=== PATIENT | female | born 2005 | race Caucasian/White ===

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

== ENCOUNTER 2024-06-20 14:17 | Emergency (ER) | payer OTHER ==
[~2024-06-20] VITALS: Ht 167.6 cm; Wt 56.6 kg
[~2024-06-20 14:17] MED LIST changes: +ACYCLOVIR200 MG PO; +HYDROCODON-ACE1 EA10 PO; +HYDROCODON-ACE1 EAC8 PO; +ONDANSETRON ODT8 MG PO
[2024-06-20 15:27] LABS: BASOPHILS 0.3 % (0-2); EOSINOPHILS 2.6 % (0-6); HEMATOCRIT 41.5 % (35.0-50.0); MCH 32.6 (27-36); MCHC 33.7 g/dl (30-36); MCV 96.7 fl (81-99); MONOCYTES 9.3 % (0-12); NEUTROPHILS 55.8 % (39-80); PLATELET COUNT 281 K/uL (140-440); RDW 12.7 (10.5-15.0)
[2024-06-20 15:28] LABS: BILIRUBIN, URINE NEGATIVE (negative); BLOOD/HGB, URINE NEGATIVE (Negative); KETONE, URINE NEGATIVE (Negative); LEUK ESTERASE, URINE NEGATIVE (negative); NITRITE, URINE NEGATIVE (negative)
[2024-06-20] MEDS ORDERED: SODIUM CHLORIDE 0.9% 1,000 ML IV ONE (15:30)
[2024-06-20] MEDS ORDERED: ondansetron HCL 4 MG/2 ML VIAL IV ONE (15:30)
[2024-06-20] MEDS ORDERED: HYDROmorphone HCL 1 MG/ML SYR IV PRN (15:30)
[2024-06-20 15:48] LABS: ALBUMIN 4.2 g/dL (3.4-5.0); ALBUMIN/GLOBULIN RATIO 1.14 (1.1-2.4); ANION GAP 14.5 (7-21); BILIRUBIN, TOTAL 0.5 ng/dL (0.2-1.0); BUN/CREATININE RATIO 14.92 (6.0-28.6); CALCIUM 9.3 mg/dL (8.5-10.1); CREATININE, SERUM 0.67 mg/dL (0.55-1.02); POTASSIUM 3.5 mmol/L (3.5-5.1); PROTEIN, TOTAL 7.9 g/dL (6.4-8.2)
[2024-06-20] MEDS ORDERED: HYDROCODONE/ACETA 5/325 TAB PO ONE (17:15)
[2024-06-20] MEDS ORDERED: HYDROCODON-ACE1 EA11 PO (17:42)
[2024-06-20 18:28] VITALS: BP 101/65
[2024-06-25] MEDS ORDERED: IBU800 MG PO (02:42)
== END 2024-06-20 18:28 | disposition home or self-care (01) ==
LOC: ED 14:17
PROVIDERS: Emergency Medicine
DX: R10.2 Pelvic and perineal pain (principal); N83.202 Unspecified ovarian cyst, left side
CPT/HCPCS: 36415; 74177; 80053; 81003; 83690; 84703; 85025; 96361; 96375; 99284-25; J1170; J2405; J7030; Q9967

== ENCOUNTER 2025-03-13 20:33 | Emergency (ER) | payer OTHER ==
[~2025-03-13 20:33] MED LIST changes: +HYDROCODON-ACE1 EA11 PO; +IBU800 MG PO
[2025-03-13] MEDS ORDERED: FAMOTIDINE 20 MG/ 2 ML VIAL IV ONE (21:00)
[2025-03-13] MEDS ORDERED: ondansetron HCL 4 MG/2 ML VIAL IV ONE (21:00)
[2025-03-13] MEDS ORDERED: LACTATED RINGER'S 1,000 ML IV ONE (21:00)
[2025-03-13 21:08] LABS: BASOPHILS 1.1 % (0.1-1.2); EOSINOPHILS 2.6 % (0.7-5.8); HEMATOCRIT 40.6 % (34.1-44.9); HEMOGLOBIN 14.1 g/dL (11.2-15.7); LYMPHOCYTES 39.7 % (19.3-51.7); MCH 32.3 PG (25.6-32.2); MCHC 34.7 g/dL (32.2-35.5); MCV 92.9 fL (79.4-94.8); MONOCYTES 8.5 % (4.7-12.5); NEUTROPHILS 48.1 % (34.0-71.1); PLATELET COUNT 321 K/uL (182-369); RBC 4.37 M/uL (3.93-5.22)
[2025-03-13 21:24] LABS: ABO O; RH POSITIVE
[2025-03-13 21:30] LABS: ALBUMIN 4.5 g/dL (3.4-5.0); ALBUMIN/GLOBULIN RATIO 1.15 (1.1-2.4); ALKALINE PHOSPHATASE 79 U/L (46-116); ALT (SGPT) 22 U/L (14-59); ANION GAP 16.3 (7-21); AST (SGOT) 13 U/L (15-37); BILIRUBIN, TOTAL 0.6 mg/dL (0.2-1.0); CALCIUM 9.2 mg/dL (8.5-10.1); CARBON DIOXIDE 24 mmol/L (21-32); CHLORIDE 102 mmol/L (98-107); CREATININE, SERUM 0.76 mg/dL (0.55-1.02); GLOMERULAR FILTRATION RATE,EST 114 mL/min (>60); POTASSIUM 3.3 mmol/L (3.5-5.1); PROTEIN, TOTAL 8.4 g/dL (6.4-8.2); UREA NITROGEN 13 mg/dL (7-18)
[2025-03-13 21:39] LABS: BILIRUBIN, URINE NEGATIVE (negative); BLOOD/HGB, URINE LARGE (Negative); KETONE, URINE NEGATIVE (Negative); LEUK ESTERASE, URINE SMALL (negative); NITRITE, URINE NEGATIVE (negative)
[2025-03-13 21:45] LABS: EPITHELIAL CELLS, URINE SQUAMOUS 1+ /lpf (0-1+)
[2025-03-13 21:46] LABS: BACTERIA, URINE RARE /hpf (negative); CASTS, URINE NONE SEEN \\lpf; COLLECTION TYPE, URINE CLEAN CATCH; CRYSTALS, URINE NONE SEEN (0-1+); REFLEX CULTURE, URINE Yes (No)
[2025-03-13 21:53] LABS: AMPHETAMINES, URINE NEGATIVE (NEGATIVE); BARBITURATES, URINE NEGATIVE (NEGATIVE); BENZODIAZEPINE, URINE NEGATIVE (NEGATIVE); BUPRENORPHINE, URINE NEGATIVE (NEGATIVE); CANNABINOID, URINE POSITIVE (NEGATIVE); COCAINE, URINE NEGATIVE (NEGATIVE); ECSTASY, URINE NEGATIVE (NEGATIVE); FENTANYL, URINE NEGATIVE (NEGATIVE); METHADONE, URINE NEGATIVE (NEGATIVE); OPIATES, URINE NEGATIVE (NEGATIVE); OXYCODONE, URINE NEGATIVE (NEGATIVE); PHENCYCLIDINE, URINE NEGATIVE (NEGATIVE)
[2025-03-13 22:28] VITALS: BP 101/58
== END 2025-03-13 22:28 | disposition home or self-care (01) ==
LOC: ED 20:33
PROVIDERS: Internal Medicine
DX: N93.9 Abnormal uterine and vaginal bleeding, unspecified (principal); Z90.49 Acquired absence of other specified parts of digestive tract
CPT/HCPCS: 36415; 76830; 76856; 80053; 80307; 81001; 83735; 84702; 85025; 86900; 86901; 87077; 87088; 87186; 96374; 96375; 99284-25; J2405; J7121

== ENCOUNTER 2025-05-14 11:24 | Emergency (ER) | payer OTHER ==
[~2025-05-14] VITALS: Ht 167.6 cm; Wt 60.5 kg
[2025-05-14 11:44] LABS: BASOPHILS 0.8 % (0.1-1.2); EOSINOPHILS 1.5 % (0.7-5.8); LYMPHOCYTES 25.7 % (19.3-51.7); MCH 32.2 PG (25.6-32.2); MCHC 34.3 g/dL (32.2-35.5); MCV 93.9 fL (79.4-94.8); MONOCYTES 10.4 % (4.7-12.5); NEUTROPHILS 61.1 % (34.0-71.1); RBC 3.63 M/uL (3.93-5.22)
[2025-05-14 11:55] LABS: ALT (SGPT) 17.0 U/L (14-59); AST (SGOT) 18.0 U/L (15-37); GLOMERULAR FILTRATION RATE,EST 133.0 mL/min (>60); PROTEIN, TOTAL 7.5 g/dL (6.4-8.2); UREA NITROGEN 13.0 mg/dL (7-18)
[2025-05-14] MEDS ORDERED: ACETAMINOPHEN 500 MG TAB PO ONE (13:15)
[2025-05-14] MEDS ORDERED: IBUPROFEN 600 MG TAB PO ONE (13:15)
[2025-05-14] MEDS ORDERED: HYDROCODONE/ACETA 7.5/325 TAB PO ONE (13:30)
[2025-05-14] MEDS ORDERED: TRIMETHOPRIM/SULFAMETHOXAZOLE 1 EA TAB PO ONE (13:30)
[2025-05-14] MEDS ORDERED: LIDOCAINE/RACEPINEP/TETRACAINE 3 ML SYR TOP ONE (14:30)
[2025-05-14] MEDS ORDERED: BACTRIM DS TAB1 EACH PO (15:37)
[2025-05-14 15:49] VITALS: BP 102/58
== END 2025-05-14 15:45 | disposition home or self-care (01) ==
LOC: ED 11:24
PROVIDERS: Emergency Medicine
DX: L02.31 Cutaneous abscess of buttock (principal)
CPT/HCPCS: 10060; 36415; 80053; 85025; 99283-25; A9270

== ENCOUNTER 2025-09-08 14:03 | Emergency (ER) | payer OTHER ==
[~2025-09-08] VITALS: Ht 167.6 cm; Wt 60.5 kg
[~2025-09-08 14:03] MED LIST changes: +BACTRIM DS TAB1 EACH PO
[2025-09-08] MEDS ORDERED: KETOROLAC TROMETHAMINE 15 MG/ML VIAL IV ONE (14:30)
[2025-09-08] MEDS ORDERED: SODIUM CHLORIDE 0.9% 1,000 ML IV PRN (14:30)
[2025-09-08 14:32] LABS: BASOPHILS 1.1 % (0.1-1.2); EOSINOPHILS 1.0 % (0.7-5.8); LYMPHOCYTES 35.8 % (19.3-51.7); MCH 32.4 PG (25.6-32.2); MCHC 35.0 g/dL (32.2-35.5); MCV 92.5 fL (79.4-94.8); MONOCYTES 8.8 % (4.7-12.5); NEUTROPHILS 53.1 % (34.0-71.1); RBC 4.42 M/uL (3.93-5.22)
[2025-09-08] MEDS ORDERED: HYDROmorphone HCL 1 MG/ML SYR IV ONE ×2 (14:45→16:15)
[2025-09-08 14:51] LABS: AST (SGOT) 20.0 U/L (15-37); GLOMERULAR FILTRATION RATE,EST 121.0 mL/min (>60); PROTEIN, TOTAL 7.9 g/dL (6.4-8.2); UREA NITROGEN 10.0 mg/dL (7-18)
[2025-09-08 14:58] LABS: BLOOD/HGB, URINE NEGATIVE (Negative); KETONE, URINE NEGATIVE (Negative); LEUK ESTERASE, URINE NEGATIVE (negative); NITRITE, URINE NEGATIVE (negative)
[2025-09-08 15:01] LABS: ALT (SGPT) 14.0 U/L (14-59)
[2025-09-08 17:56] VITALS: BP 114/74
== END 2025-09-08 18:02 | disposition home or self-care (01) ==
LOC: ED 14:03
PROVIDERS: Emergency Medicine
DX: R10.31 Right lower quadrant pain (principal); R10.20 Pelvic and perineal pain unspecified side
CPT/HCPCS: 36415; 74177; 76830; 76856; 80053; 81003; 83690; 84703; 85025; 96374; 96375; 96376; 99284-25; J1171; J1885; J2405; J7030; Q9967